=== PATIENT | female | born 1990 | race African-American/Black ===

== ENCOUNTER 2022-10-31 03:11 | Emergency (ER) | payer BC ==
[~2022-10-31] VITALS: Ht 170.2 cm; Wt 70.3 kg
[2022-10-31] MEDS ORDERED: predniSONE 20 MG TABLET ONE (03:25)
[2022-10-31] MEDS ORDERED: predniSONE 50 MG TABLET PO ONE (03:30)
[2022-10-31] MEDS ORDERED: ALBUTEROL SULFATE 8 GM HFA.AER.AD NEB ONE (03:30)
[2022-10-31] MEDS ORDERED: IPRATROPIUM NEB FS 0.5 MG/2.5 ML AMPUL.NEB NEB ONE (03:30)
[2022-10-31] MEDS ORDERED: IPRATROPIUM NEB FS 0.5 MG/2.5 ML AMPUL.NEB ONE (03:45)
[2022-10-31] MEDS ORDERED: ALBUTEROL FS 2.5 MG/3 ML VIAL.NEB ONE (03:48)
--- NOTE | 2022-10-31 03:57 | NUR ---
RT AT BEDSIDE
[2022-10-31] MEDS ORDERED: ALBUTEROL FS 2.5 MG/3 ML VIAL.NEB NEB ONE (04:00)
[2022-10-31] MEDS ORDERED: PRED20TA PO (04:20)
[2022-10-31] MEDS ORDERED: ALBU18HF2 INH (04:20)
--- NOTE | 2022-10-31 04:28 | NUR ---
Patient discharged to home in stable condition. Written and verbal after care instructions given. Patient verbalizes understanding of instruction.
[2022-10-31 04:29] VITALS: BP 138/64
== END 2022-10-31 04:29 | disposition home or self-care (01) ==
LOC: ER 03:24
DX: J45.909 Unspecified asthma, uncomplicated (principal); Z60.2 Problems related to living alone; Z79.52 Long term (current) use of systemic steroids; Z79.51 Long term (current) use of inhaled steroids